=== PATIENT | male | born 1970 | race Two or more races ===

== ENCOUNTER 2023-03-28 15:58 | Emergency (ER) | payer MEDICAID ==
[~2023-03-28] VITALS: Ht 170.2 cm; Wt 61.2 kg
[2023-03-28 16:01] VITALS: BP 157/108
--- NOTE | 2023-03-28 16:55 | NUR ---
[facility] EVALUATING PT
[2023-03-28] MEDS ORDERED: KETOROLAC 30 MG/ML VIAL IM ONE (17:00)
[2023-03-28] MEDS ORDERED: LIDOCAINE 5% 1 EA PATCH TP SCH (17:00)
[2023-03-28 18:09] LABS: BASOPHILS # (AUTO) 0.1 K/uL (0.00-0.22); BASOPHILS % (AUTO) 0.7 % (0.0-2.0); EOSINOPHILS # (AUTO) 0.4 K/uL (0-0.4); EOSINOPHILS % (AUTO) 3.5 % (0.0-4.0); HEMATOCRIT 45.5 % (36-52); HEMOGLOBIN 15.9 g/dL (12.0-18.0); LYMPHOCYTES # (AUTO) 4.4 K/uL (2.0-11.5); MEAN CORPUSCULAR HEMOGLOBIN 29 pg (27-31); MEAN CORPUSCULAR HGB CONC 35 g/dL (33-37); MEAN CORPUSCULAR VOLUME 82.3 fL (80-94); MONOCYTES # (AUTO) 0.9 K/uL (0.8-1.0); MONOCYTES % (AUTO) 8.1 % (1.7-9.3); NEUTROPHILS % (AUTO) 46.7 % (42.2-75.2); PLATELET COUNT (AUTO) 277 K/uL (140-450); RED BLOOD CELL COUNT(AUTO) 5.52 MIL/uL (4.20-6.10); RED CELL DISTRIBUTION WIDTH 14.5 % (11.6-13.7); WHITE BLOOD COUNT (AUTO) 10.7 K/uL (4.8-10.8)
[2023-03-28 18:52] LABS: ALBUMIN 4.1 g/dL (3.4-5.0); ANION GAP 11.6 (8-16); ASPARTATE AMINOTRANSFERASE 24 U/L (15-37); CARBON DIOXIDE 28.7 mmol/L (21-32); CHLORIDE 104 mmol/L (98-107); CREATININE 0.8 mg/dL (0.6-1.3); GFR ARICAN-AMERICAN 132 mL/min (>90); GLUCOSE 94 mg/dL (74-106); POTASSIUM 4.3 mmol/L (3.5-5.1); SODIUM SERUM 140 mmol/L (136-145); TOTAL BILIRUBIN 0.4 mg/dL (0.0-1.0); UREA NITROGEN, BLOOD 18 mg/dL (7-18)
[2023-03-28] MEDS ORDERED: NAPR-54 PO (19:06)
[2023-03-28] MEDS ORDERED: ACET-10509 PO (19:06)
[2023-03-28] MEDS ORDERED: NAPR-1871 PO (19:06)
[2023-03-28] MEDS ORDERED: LID5T TP (19:06)
[2023-03-28 19:25] VITALS: BP 157/108
--- NOTE | 2023-03-28 19:25 | NUR ---
Patient discharged with v/s stable. Written and verbal after care instructions given and explained. Patient alert, oriented and verbalized understanding of instructions. Ambulatory with steady gait. All questions addressed prior to discharge. ID band removed. Patient advised to follow up with PMD. Rx of naprosyn sodium, nprosyn, lidoderm, tylenol given. Patient educated on indication of medication including possible reaction and side effects. Opportunity to ask questions provided and answered.
== END 2023-03-28 19:25 | disposition home or self-care (01) ==
LOC: MED 15:58
DX: S29.011A Strain of muscle and tendon of front wall of thorax, initial encounter (principal); I10 Essential (primary) hypertension; Z79.899 Other long term (current) drug therapy; X58.XXXA Exposure to other specified factors, initial encounter; Y93.89 Activity, other specified; Y92.89 Other specified places as the place of occurrence of the external cause; Y99.8 Other external cause status
CPT/HCPCS: 36415; 71045; 80053; 84484; 85025; 85379; 93005; 96372; 99285; J1885